=== PATIENT | male | born 1945 | race Caucasian/White ===

== ENCOUNTER 2016-05-30 12:04 | Emergency (ER) | payer OTHER ==
[2016-05-30 12:15] VITALS: RESP 18; O2SAT 96
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
[2016-05-30] MEDS ORDERED: KETOROLAC 30 MG/1 ML SDV IM ONE (13:33)
[2016-05-30 14:12] VITALS: BP 138/74; PULSE 74; TEMP 97.9
== END 2016-05-30 14:12 | disposition home or self-care (01) ==
LOC: EDUNIT#
DX: S16.1XXA Strain of muscle, fascia and tendon at neck level, initial encounter (principal); V49.49XA Driver injured in collision with other motor vehicles in traffic accident, initial encounter; Y92.410 Unspecified street and highway as the place of occurrence of the external cause; Y99.8 Other external cause status; Y93.89 Activity, other specified
CPT/HCPCS: J1885